=== PATIENT | male | born 1995 | race Hispanic/Latino ===

== ENCOUNTER 2021-06-03 16:00 | Emergency (ER) | payer MEDICAID, OTHER ==
[~2021-06-03] VITALS: Ht 175.3 cm; Wt 96.6 kg
[2021-06-03 16:11] VITALS: BP 130/78
[2021-06-03] MEDS ORDERED: CEPHALEXIN 500 MG CAPSULE ONE (16:51)
[2021-06-03] MEDS ORDERED: IBUPROFEN 800 MG TAB ONE (16:52)
[2021-06-03] MEDS ORDERED: CEPHALEXIN 500 MG CAPSULE PO ONE (17:00)
[2021-06-03] MEDS ORDERED: IBUPROFEN 800 MG TAB PO ONE (17:00)
[2021-06-03] MEDS ORDERED: CEPH500B PO (17:27)
== END 2021-06-03 17:45 | disposition home or self-care (01) ==
LOC: EDH 16:00
DX: S60.454A Superficial foreign body of right ring finger, initial encounter (principal); L03.011 Cellulitis of right finger; W34.010A Accidental discharge of airgun, initial encounter; Y93.89 Activity, other specified; Y92.89 Other specified places as the place of occurrence of the external cause; Y99.8 Other external cause status
CPT/HCPCS: 73130